=== PATIENT | male | born 1955 | race Caucasian/White ===

== ENCOUNTER 2019-06-08 14:27 | Emergency (ER) | payer MEDICAID, OTHER ==
[~2019-06-08] VITALS: Ht 167.6 cm; Wt 69.9 kg
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
--- NOTE | 2019-06-08 14:40 | NUR ---
ERMD at bedside for MSE
--- NOTE | 2019-06-08 15:25 | NUR ---
DR MAI MADE PATIENT AWARE OF TEST RESULTS.
--- NOTE | 2019-06-08 15:27 | NUR ---
Patient discharged to home in stable conditon. Written and verbal after care instructions given. Patient verbalizes understanding of instructions.
[2019-06-08 15:28] VITALS: BP 115/70
== END 2019-06-08 15:29 | disposition home or self-care (01) ==
LOC: ER 14:29
DX: R07.89 Other chest pain (principal); M25.562 Pain in left knee; V49.9XXA Car occupant (driver) (passenger) injured in unspecified traffic accident, initial encounter; Y93.89 Activity, other specified; Y92.89 Other specified places as the place of occurrence of the external cause; Y99.8 Other external cause status
CPT/HCPCS: 71045; A4663